=== PATIENT | male | born 1985 | race Caucasian/White ===

== ENCOUNTER → 2024-09-12 16:14 | Outpatient (REF) | payer BC, SELFPAY | LOC: HWRAD 16:14 | PROVIDERS: ATTENDING PHYSICIAN Physician Assistant Medical | DX: M79.671 Pain in right foot (principal) | CPT/HCPCS: 73630 ==

== ENCOUNTER → 2025-04-29 15:30 | Outpatient (REF) | payer BC, SELFPAY | LOC: HWRAD 15:30 | PROVIDERS: ATTENDING PHYSICIAN Family Medicine | DX: N45.1 Epididymitis (principal); N50.89 Other specified disorders of the male genital organs | CPT/HCPCS: 76870; 93976 ==